=== PATIENT | female | born 1965 | race Caucasian/White ===

== ENCOUNTER 2021-11-14 14:06 | Emergency (ER) | payer MEDICAID ==
[~2021-11-14] VITALS: Ht 152.4 cm; Wt 70.9 kg
--- NOTE | 2021-11-14 14:06 | NUR ---
TO ER BED 9. [id number] FROM HOME FOR DIZZINESS, HEADACHE, SLURRED SPEECH, RIGHT SIDED WEAKNESS. LAST WELL KNOWN WELL IS 1200. SON STATED THAT HE LEFT HOME TO GO TO THE MARKET AT HOME AND NOTICED SHE WAS SLURRING HER SPEECH ONCE HE GOT HOME 1 HOUR PRIOR TO ARRIVAL. PT IS A&OX4. ATTACHED TO MONITOR, HYPERTENSIVE. AWARE.
--- NOTE | 2021-11-14 14:08 | NUR ---
CODE STROKE ACTIVATED.
--- NOTE | 2021-11-14 14:09 | NUR ---
PT TO CT VIA [employer]OTOCALS.
--- NOTE | 2021-11-14 14:12 | NUR ---
CALLED [facility] [phone] SANCHES
--- NOTE | 2021-11-14 14:16 | NUR ---
DR. SIMONA SANCHES JUDICIAL ASSISTANT TELE-NEURO.
[2021-11-14] MEDS ORDERED: IOHEXOL-350 100 ML VIAL IV ONE (14:24)
[2021-11-14] MEDS ORDERED: IV NS 0.9% 250 ML IV ONE (14:24)
--- NOTE | 2021-11-14 14:24 | NUR ---
DR. SANCHES SPEAKING WITH AI MEREDITH.
[2021-11-14 14:27] LABS: BASOPHILS % (AUTO) 0.4 % (0.0-2.0); EOSINOPHILS % (AUTO) 1.6 % (0.0-6.0); HEMATOCRIT 40 % (33-45); HEMOGLOBIN 13.1 g/dL (11.5-14.8); LYMPHOCYTES # (AUTO) 2.6 K/uL (0.8-4.8); LYMPHOCYTES % (AUTO) 32.3 % (20.0-44.0); MEAN CORPUSCULAR HGB CONC 33 g/dl (31.0-36.0); MEAN CORPUSCULAR VOLUME 87 fL (82-100); MONOCYTES # (AUTO) 0.3 K/uL (0.1-1.30); NEUTROPHILS % (AUTO) 61.7 % (43.0-81.0); PLATELET COUNT (AUTO) 191 K/uL (150-450); RED BLOOD CELL COUNT(AUTO) 4.59 MIL/uL (4.0-5.2); WHITE BLOOD COUNT (AUTO) 8.1 K/uL (4.3-11.0)
--- NOTE | 2021-11-14 14:31 | NUR ---
PT BACK FROM CT VIA [employer].
[2021-11-14 14:39] LABS: CALCIUM, SERUM 8.4 mg/dL (8.5-10.1); CARBON DIOXIDE 27 mmol/L (21-32); CHLORIDE 107 mmol/L (98-107); GLUCOSE 164 mg/dL (74-106); POTASSIUM 3.6 mmol/L (3.5-5.1); SODIUM SERUM 141 mmol/L (136-145); UREA NITROGEN, BLOOD 17 mg/dL (7-18)
--- NOTE | 2021-11-14 14:50 | NUR ---
CALLED [facility] [phone] ART
[2021-11-14] MEDS ORDERED: WATER FOR INJECTION STERILE IV ONE (15:30)
[2021-11-14] MEDS ORDERED: ALTEPLASE BOLUS DOSE IV ONE (15:30)
[2021-11-14] MEDS ORDERED: ALTEPLASE IV ONE (15:30)
--- NOTE | 2021-11-14 15:40 | NUR ---
FAXED PT'S CLINICALS TO [facility] AT [phone]
[2021-11-14 16:00] VITALS: BP 148/78
--- NOTE | 2021-11-14 16:01 | NUR ---
TRANSPORTATION ARIIVED, REPORTGIVEN TO ART. GAVE NUMBER FOR REPORT [phone]
--- NOTE | 2021-11-14 16:07 | NUR ---
REPORT GIVEN TO ELENA FOR LUIS ARMANDO
== END 2021-11-14 16:12 | disposition short-term general hospital (02) ==
LOC: ER 14:06
DX: G81.91 Hemiplegia, unspecified affecting right dominant side (principal); R47.81 Slurred speech; Z20.822 Contact with and (suspected) exposure to COVID-19
CPT/HCPCS: 99291; 70498; 96365; 71045; 87426; 93005; 70496; 85025; 80048; 36415; 84484; 85730; 70450; J2997; J7050 ×2; Q9967; C9803